=== PATIENT | male | born 1985 | race Caucasian/White ===

== ENCOUNTER → 2017-04-21 | Outpatient (CLI) | payer BC ==
--- NOTE | 2017-04-21 14:15 | DIAGNOSTIC IMAGING REPORT ---
RIGHT FOOT 3 VIEWS HISTORY: Fall. Right foot pain. CONTUSION OF R FOOT COMPARISON: None. FINDINGS: There is no fracture or dislocation. Soft tissues are unremarkable. No radiopaque foreign bodies. IMPRESSION: No fractures. Electronically signed by: Kit Noland M.D. 04/21/2017 2:14 PM Dictated Date/Time: 04/21/2017 2:07 PM
== END | disposition home or self-care (01) ==
LOC: C.RADBC 13:49
PROVIDERS: ATTEND Nurse Practitioner
DX: S90.31XA Contusion of right foot, initial encounter (principal); X58.XXXA Exposure to other specified factors, initial encounter

== ENCOUNTER → 2017-10-08 | Outpatient (CLI) | payer BC, OTHER | END | disposition home or self-care (01) | LOC: C.RDSM 18:09 | PROVIDERS: ATTEND Family Medicine Sports Medicine | DX: M25.571 Pain in right ankle and joints of right foot (principal) ==

== ENCOUNTER → 2017-10-15 | Outpatient (CLI) | payer OTHER ==
--- NOTE | 2017-10-15 08:24 | DIAGNOSTIC IMAGING REPORT ---
MRI OF THE RIGHT ANKLE WITHOUT CONTRAST CLINICAL HISTORY: Right ankle pain. Right ankle effusion. COMPARISON STUDY: Right ankle radiographs October 08, 2017. TECHNIQUE: Utilizing a 1.5 Griselda magnet and dedicated coil, multiplanar, multiecho imaging of the right ankle was performed without intravenous or intraarticular contrast. FINDINGS: Alignment of the right ankle is anatomic. Talar dome is intact. No abnormalities of the tibiotalar subtalar joints are noted. The Achilles tendon and plantar fascia are normal. There is no marrow edema or marrow replacement. Note is made of an os naviculare. There is no edema within or adjacent to the accessory ossicle. The flexor, peroneal and extensor tendons are intact. Intrinsic ligaments of the right ankle are intact. No mass or fluid collection is present. There is no tibiotalar joint effusion. No erosions are identified. A marker was placed on the skin at site of maximal pain. This overlies the medial right midfoot. IMPRESSION: 1. No significant abnormality of the right ankle identified. 2. Os naviculare. No edema within or adjacent to the accessory ossicle. Electronically signed by: Narindre Germain M.D. 10/15/2017 8:23 AM Dictated Date/Time: 10/15/2017 7:58 AM
== END | disposition home or self-care (01) ==
LOC: C.MRIBC 07:21
PROVIDERS: ATTEND Family Medicine Sports Medicine
DX: M25.471 Effusion, right ankle (principal)